=== PATIENT | male | born 1960 | race Caucasian/White ===

== ENCOUNTER 2024-08-26 09:33 | Emergency (ER) | payer BC ==
[2024-08-26] MEDS: Naloxone 0.4 MG/ML SDV IVPUSH ONE (09:35)
[2024-08-26 10:32] LABS: BASOPHILS ABSOLUTE AUTO 0.04 K/uL (0.00-0.20); BASOPHILS PERCENT AUTO 0.6 % (0.0-2.0); EOSINOPHILS ABSOLUTE AUTO 0.21 K/uL (0.00-0.50); EOSINOPHILS PERCENT AUTO 3.3 % (0.0-5.0); HEMATOCRIT 45.2 % (39.0-49.0); HEMOGLOBIN 15.1 g/dL (13.1-16.8); LYMPHOCYTES ABSOLUTE AUTO 2.39 K/uL (0.50-3.50); LYMPHOCYTES PERCENT AUTO 37.4 % (10.0-50.0); MEAN CORPUSCULAR HEMOGLOBIN 30.6 pg (28.2-33.3); MEAN CORPUSCULAR HGB CONC 33.4 g/dL (31.7-36.0); MEAN CORPUSCULAR VOLUME 91.5 fL (84.0-98.0); MONOCYTES ABSOLUTE AUTO 0.88 K/uL (0.00-1.00); MONOCYTES PERCENT AUTO 13.8 % (2.0-14.0); NEUTROPHILS ABSOLUTE AUTO 2.87 K/uL (1.40-7.00); NEUTROPHILS PERCENT AUTO 44.9 % (45.0-80.0); PLATELET COUNT,PLT 303 K/uL (150-350); RED BLOOD CELL COUNT 4.94 M/uL (4.33-5.41); WHITE BLOOD CELL COUNT,WBC 6.4 K/uL (4.0-10.2)
[2024-08-26 10:37] LABS: PROTHROMBIN TIME 10.1 SEC (9.0-11.1)
[2024-08-26 10:45] LABS: ACETAMINOPHEN 37.9 ug/mL (10.0-30.0); ALANINE AMINOTRANSFERASE,ALT 43 U/L (12-78); ALBUMIN 4.2 g/dL (3.4-5.0); ALKALINE PHOSPHATASE 64 IU/L (46-116); ANION GAP 9.7 meq/L (7-15); ASPARTATE AMNIOTRANSFERASE,AST 27 U/L (15-37); BILIRUBIN TOTAL 0.3 mg/dL (0.2-1.0); BLOOD UREA NITROGEN,BUN 13 mg/dL (7-18); CARBON DIOXIDE,CO2 27.3 mmol/L (21.0-32.0); CHLORIDE,CL 102 mmol/L (98-107); CREATININE 1.04 mg/dL (0.51-1.17); ESTIMATED GFR 80 mL/min (>=60); GLUCOSE RANDOM 105 mg/dL (70-99); POTASSIUM,K 4.3 mmol/L (3.5-5.1); SODIUM,NA 139 mmol/L (136-145)
[2024-08-26] MEDS: Ondansetron 4 MG/2 ML SDV IVPUSH ONE (14:22)
[2024-08-26] MEDS: Sodium Chloride 0.9% 10 ML Syringe FLUSH PRN (14:30)
== END 2024-08-26 14:20 | disposition home or self-care (01) ==
LOC: LL.ED 09:33
DX: T40.2X1A Poisoning by other opioids, accidental (unintentional), initial encounter (principal); Z79.82 Long term (current) use of aspirin; Z79.899 Other long term (current) drug therapy; Z79.890 Hormone replacement therapy; Z88.0 Allergy status to penicillin; Z88.1 Allergy status to other antibiotic agents; Z88.8 Allergy status to other drugs, medicaments and biological substances
CPT/HCPCS: 36415; 80053; 80143; 85025; 85610; 94761; 96374; 96375; 99284 ×2; J2310; J2405; J3490